=== PATIENT | female | born 1980 | race Caucasian/White ===

== ENCOUNTER 2023-12-07 12:47 | Outpatient (CLI) | payer MEDICARE ==
[2023-12-07 14:31] VITALS: BP 121/82; PULSE 66; RESP 16; TEMP 98.2; O2SAT 100
== END 2023-12-07 15:05 | disposition home or self-care (01) ==
LOC: EDBD 12:47 → CSU 12:47 → EDSTATUS 02-01 14:56
PROVIDERS: ATTEND Nurse Practitioner Psychiatric/Mental Health
DX: F31.9 Bipolar disorder, unspecified (principal); F10.21 Alcohol dependence, in remission; F12.90 Cannabis use, unspecified, uncomplicated
CPT/HCPCS: 90839; 90840